=== PATIENT | male | born 1965 | race Caucasian/White ===

== ENCOUNTER 2022-10-20 20:46 | Inpatient (IN) | payer OTHER ==
[2022-10-20 21:21] VITALS: BMI 34.7
[2022-10-20] MEDS ORDERED: BISMUTH SUBSALICYLATE 524 MG/30 ML PO PRN (22:03)
[2022-10-20] MEDS ORDERED: LOPERAMIDE HCL 2 MG CAPSULE PO PRN (22:03)
[2022-10-20] MEDS ORDERED: IBUPROFEN 600 MG TABLET (FP) PO PRN (22:03)
[2022-10-20] MEDS ORDERED: MAGNESIUM HYDROX 2400MG/30ML ORAL SUSPENSION 30 ML CUP PO PRN (22:03)
[2022-10-20] MEDS ORDERED: NALOXONE HCL (KLOXXADO) 8 MG SPRAY NS PRN (22:03)
[2022-10-20] MEDS ORDERED: IBUPROFEN 400 MG TABLET (FP) PO PRN (22:03)
[2022-10-20] MEDS ORDERED: ONDANSETRON *ODT* 4 MG TABLET SL PRN (22:03)
[2022-10-20] MEDS ORDERED: BENZOCAINE/MENTHOL (CHLORASEPTIC ) LOZENGE MM PRN (22:03)
[2022-10-20] MEDS ORDERED: DICYCLOMINE HCL 10 MG CAPSULE PO PRN (22:03)
[2022-10-20] MEDS ORDERED: MAG HYDROX/AL HYDROX/SIMETH 30 ML UNIT-DOSE CUP PO PRN (22:03)
[2022-10-20] MEDS ORDERED: NICOTINE 10 MG CARTRIDGE (INHALER) IH PRN (22:03)
[2022-10-20] MEDS ORDERED: POLYETHYLENE GLYCOL (HEALTHYLAX) 3350 17 GM PACKET PO PRN (22:03)
[2022-10-20] MEDS ORDERED: METHOCARBAMOL 500 MG TABLET PO PRN (22:03)
[2022-10-20] MEDS ORDERED: ACETAMINOPHEN 325 MG TABLET (FP) PO PRN ×2 (22:03)
[2022-10-20] MEDS ORDERED: hydrOXYzine PAMOATE 25 MG CAPSULE (FP) PO ONE (23:55)
[2022-10-21] MEDS ORDERED: chlordiazePOXIDE HCL 25 MG CAPSULE PO PRN (10:26)
[2022-10-21] MEDS: PRENATAL VITAMINS W/ FOLIC ACID TABLET (FP) PO SCH (10:38)
[2022-10-21] MEDS: LOSARTAN POTASSIUM 50 MG TABLET PO SCH (10:41)
[2022-10-21] MEDS: ALBUTEROL SO4 HFA INHALER IH PRN (10:41)
[2022-10-21] MEDS: NICOTINE 14 MG/24 HOURS TOPICAL PATCH TD SCH (10:41)
[2022-10-21] MEDS: chlordiazePOXIDE HCL 25 MG CAPSULE PO SCH ×3 (11:19→22:26)
[2022-10-21 12:50] LABS: HEMATOCRIT 41.9 % (35.4-49); HEMOGLOBIN 13.7 GM/dL (11.7-16.9); MCH 28.4 pg (25.7-33.7); MCHC 32.8 g/dl (32.0-35.9); MEAN CELL VOLUME 86.5 fl (80-96); MEAN PLT VOLUME 7.7 fl (7.5-11.1); PLATELET COUNT 307 10^3/uL (134-434); RBC 4.85 M/mm3 (4.00-5.60); RDW 13.6 % (11.9-15.9); WHITE BLOOD COUNT 7.1 K/mm3 (4.0-10.0)
[2022-10-21 13:27] LABS: CALCIUM 8.7 mg/dL (8.5-10.1)
[2022-10-21 13:28] LABS: ALBUMIN 3.3 g/dl (3.4-5.0)
[2022-10-21 13:31] LABS: CREATININE 0.9 mg/dL (0.55-1.3)
[2022-10-21 13:32] LABS: BILIRUBIN,TOTAL 0.4 mg/dL (0.2-1)
[2022-10-21 13:33] LABS: TOT PROT 6.6 g/dl (6.4-8.2)
[2022-10-21] MEDS: MELATONIN 5 MG TABLETS PO SCH (22:26)
[2022-10-21] MEDS: traZODone HCL 50 MG TABLET (FP) PO SCH (22:26)
[2022-10-21] MEDS: MONTELUKAST NA 10 MG TABLET PO SCH (22:26)
[2022-10-21] MEDS: THIAMINE HCL 100 MG TABLET (FP) PO SCH (22:26)
[2022-10-22] MEDS: chlordiazePOXIDE HCL 25 MG CAPSULE PO SCH ×4 (05:52→22:12)
[2022-10-22] MEDS: PRENATAL VITAMINS W/ FOLIC ACID TABLET (FP) PO SCH (10:29)
[2022-10-22] MEDS: LOSARTAN POTASSIUM 50 MG TABLET PO SCH (10:30)
[2022-10-22] MEDS: ESCITALOPRAM OXALATE 20 MG TABLET PO SCH (10:30)
[2022-10-22] MEDS: NICOTINE 14 MG/24 HOURS TOPICAL PATCH TD SCH (10:30)
[2022-10-22] MEDS: THIAMINE HCL 100 MG TABLET (FP) PO SCH (22:11)
[2022-10-22] MEDS: traZODone HCL 50 MG TABLET (FP) PO SCH (22:11)
[2022-10-22] MEDS: MONTELUKAST NA 10 MG TABLET PO SCH (22:11)
[2022-10-22] MEDS: MELATONIN 5 MG TABLETS PO SCH (22:11)
[2022-10-23] MEDS: chlordiazePOXIDE HCL 25 MG CAPSULE PO SCH ×4 (06:05→22:19)
[2022-10-23] MEDS: PRENATAL VITAMINS W/ FOLIC ACID TABLET (FP) PO SCH (10:31)
[2022-10-23] MEDS: ESCITALOPRAM OXALATE 20 MG TABLET PO SCH (10:32)
[2022-10-23] MEDS: LOSARTAN POTASSIUM 50 MG TABLET PO SCH (10:32)
[2022-10-23] MEDS: NICOTINE 14 MG/24 HOURS TOPICAL PATCH TD SCH (10:36)
[2022-10-23] MEDS ORDERED: LOSARTAN POTASSIUM 50 MG TABLET PO SCH (11:45)
[2022-10-23] MEDS: MELATONIN 5 MG TABLETS PO SCH (22:19)
[2022-10-23] MEDS: ATORVASTATIN CA 10 MG TABLET (FP) PO SCH (22:19)
[2022-10-23] MEDS: traZODone HCL 50 MG TABLET (FP) PO SCH (22:19)
[2022-10-23] MEDS: MONTELUKAST NA 10 MG TABLET PO SCH (22:19)
[2022-10-23] MEDS: THIAMINE HCL 100 MG TABLET (FP) PO SCH (22:19)
[2022-10-24] MEDS ORDERED: chlordiazePOXIDE HCL 10 MG CAPSULE PO PRN
[2022-10-24] MEDS: chlordiazePOXIDE HCL 10 MG CAPSULE PO SCH ×4 (05:39→22:30)
[2022-10-24] MEDS: PRENATAL VITAMINS W/ FOLIC ACID TABLET (FP) PO SCH (10:26)
[2022-10-24] MEDS: LOSARTAN POTASSIUM 50 MG TABLET PO SCH (10:26)
[2022-10-24] MEDS: ESCITALOPRAM OXALATE 20 MG TABLET PO SCH (10:26)
[2022-10-24] MEDS: NICOTINE 14 MG/24 HOURS TOPICAL PATCH TD SCH (10:30)
[2022-10-24] MEDS: traZODone HCL 50 MG TABLET (FP) PO SCH (22:29)
[2022-10-24] MEDS: MELATONIN 5 MG TABLETS PO SCH (22:29)
[2022-10-24] MEDS: THIAMINE HCL 100 MG TABLET (FP) PO SCH (22:30)
[2022-10-24] MEDS: MONTELUKAST NA 10 MG TABLET PO SCH (22:30)
[2022-10-24] MEDS: ATORVASTATIN CA 10 MG TABLET (FP) PO SCH (22:30)
[2022-10-25] MEDS: chlordiazePOXIDE HCL 10 MG CAPSULE PO SCH ×2 (05:15→17:51)
[2022-10-25] MEDS: ESCITALOPRAM OXALATE 20 MG TABLET PO SCH (10:55)
[2022-10-25] MEDS: NICOTINE 14 MG/24 HOURS TOPICAL PATCH TD SCH (10:55)
[2022-10-25] MEDS: PRENATAL VITAMINS W/ FOLIC ACID TABLET (FP) PO SCH (10:55)
[2022-10-25] MEDS: LOSARTAN POTASSIUM 50 MG TABLET PO SCH (10:55)
[2022-10-25] MEDS: MELATONIN 5 MG TABLETS PO SCH (22:30)
[2022-10-25] MEDS: ATORVASTATIN CA 10 MG TABLET (FP) PO SCH (22:31)
[2022-10-25] MEDS: THIAMINE HCL 100 MG TABLET (FP) PO SCH (22:31)
[2022-10-25] MEDS: MONTELUKAST NA 10 MG TABLET PO SCH (22:32)
[2022-10-25] MEDS: traZODone HCL 50 MG TABLET (FP) PO SCH (22:32)
[2022-10-26] MEDS ORDERED: chlordiazePOXIDE HCL 10 MG CAPSULE PO ONE (05:00)
[2022-10-26] MEDS: LOSARTAN POTASSIUM 50 MG TABLET PO SCH (10:09)
[2022-10-26] MEDS: PRENATAL VITAMINS W/ FOLIC ACID TABLET (FP) PO SCH (10:09)
[2022-10-26] MEDS: ESCITALOPRAM OXALATE 20 MG TABLET PO SCH (10:09)
[2022-10-26] MEDS: NICOTINE 14 MG/24 HOURS TOPICAL PATCH TD SCH (10:10)
[2022-10-26] MEDS: ALBUTEROL SO4 HFA INHALER IH PRN (10:11)
[2022-10-26 10:46] VITALS: BP 112/72; PULSE 86; RESP 16; TEMP 97.7
== END 2022-10-26 12:33 | disposition other institution (70) | DRG 775 ==
LOC: YASAS 20:46 → Y3N 23:07 → UNDOADMIN 23:07 → Y3N 10-21 00:09
PROVIDERS: ADMIT Allergy & Immunology; ATTEND Surgery
PROC: HZ2ZZZZ Detoxification Services for Substance Abuse Treatment (ICD-10-PCS; principal; 2022-10-20)
DX: F10.230 Alcohol dependence with withdrawal, uncomplicated (principal); F17.210 Nicotine dependence, cigarettes, uncomplicated; F41.9 Anxiety disorder, unspecified; G47.00 Insomnia, unspecified; E78.5 Hyperlipidemia, unspecified; I10 Essential (primary) hypertension; J45.909 Unspecified asthma, uncomplicated; E66.9 Obesity, unspecified; Z68.34 Body mass index [BMI] 34.0-34.9, adult
CPT/HCPCS: 36415; 80053; 85027; 86780; 87811; 93005; 93010; C9803-CS; U0003; U0005

== ENCOUNTER 2024-06-13 14:50 | Inpatient (IN) | payer OTHER ==
[2024-06-13 15:35] VITALS: BMI 36.0
[2024-06-13] MEDS ORDERED: chlordiazePOXIDE HCL 25 MG CAPSULE PO PRN (18:21)
[2024-06-13] MEDS ORDERED: chlordiazePOXIDE HCL 25 MG CAPSULE PO ONE (18:21)
[2024-06-13] MEDS ORDERED: ACETAMINOPHEN 325 MG TABLET (FP) PO PRN (18:22)
[2024-06-13] MEDS ORDERED: IBUPROFEN 600 MG TABLET (FP) PO PRN (18:22)
[2024-06-13] MEDS ORDERED: POLYETHYLENE GLYCOL (HEALTHYLAX) 3350 17 GM PACKET PO PRN (18:22)
[2024-06-13] MEDS ORDERED: BISMUTH SUBSALICYLATE 524 MG/30 ML PO PRN (18:22)
[2024-06-13] MEDS ORDERED: IBUPROFEN 400 MG TABLET (FP) PO PRN (18:22)
[2024-06-13] MEDS ORDERED: guaiFENesin 600 MG TABLET.ER (FP) PO PRN (18:22)
[2024-06-13] MEDS ORDERED: BENZOCAINE/MENTHOL (CHLORASEPTIC ) LOZENGE MM PRN (18:22)
[2024-06-13] MEDS ORDERED: MAG HYDROX/AL HYDROX/SIMETH 30 ML UNIT-DOSE CUP PO PRN (18:22)
[2024-06-13] MEDS ORDERED: DICYCLOMINE HCL 10 MG CAPSULE PO PRN (18:22)
[2024-06-13] MEDS ORDERED: MAGNESIUM HYDROX 2400MG/30ML ORAL SUSPENSION 30 ML CUP PO PRN (18:22)
[2024-06-13] MEDS ORDERED: NICOTINE POLACRILEX 2 MG GUM BUC PRN (18:22)
[2024-06-13] MEDS ORDERED: BENZONATATE 200 MG CAPSULE PO PRN (18:22)
[2024-06-13] MEDS ORDERED: NICOTINE POLACRILEX 2 MG LOZENGE BC PRN (18:22)
[2024-06-13] MEDS ORDERED: METOPROLOL TARTRATE 25 MG TABLET (FP) PO ONE (18:23)
[2024-06-13] MEDS ORDERED: ALBUTEROL SO4 HFA INHALER IH PRN (18:55)
[2024-06-13] MEDS: chlordiazePOXIDE HCL 25 MG CAPSULE PO ONE (19:47)
[2024-06-13] MEDS: METOPROLOL TARTRATE 25 MG TABLET (FP) PO ONE (19:51)
[2024-06-13] MEDS: MELATONIN 5 MG TABLETS PO SCH (22:32)
[2024-06-13] MEDS: ATORVASTATIN CA 10 MG TABLET (FP) PO SCH (22:32)
[2024-06-13] MEDS: MONTELUKAST NA 10 MG TABLET PO SCH (22:32)
[2024-06-13] MEDS: levETIRAcetam 500 MG TABLET (FP) PO SCH (22:32)
[2024-06-13] MEDS: THIAMINE 100 MG TABLET PO SCH (22:32)
[2024-06-13] MEDS: chlordiazePOXIDE HCL 25 MG CAPSULE PO SCH (22:33)
[2024-06-14] MEDS: PRENATAL VITAMINS W/ FOLIC ACID TABLET (FP) PO SCH (10:19)
[2024-06-14] MEDS: LOSARTAN POTASSIUM 50 MG TABLET PO SCH (10:21)
[2024-06-14] MEDS: LOPERAMIDE HCL 2 MG CAPSULE PO PRN (10:23)
[2024-06-14] MEDS: NICOTINE 14 MG/24 HOURS TOPICAL PATCH TD SCH (10:53)
[2024-06-14] MEDS: VENLAFAXINE HCL 150 MG E.R. CAPSULE PO SCH (11:50)
[2024-06-14 15:12] LABS: POTASSIUM 5.1 mmol/L (3.5-5.1)
[2024-06-14 15:13] LABS: HEMATOCRIT 44.9 % (35.4-49); HEMOGLOBIN 15.6 GM/dL (11.7-16.9); MCHC 34.7 g/dl (32.0-35.9); MEAN CELL VOLUME 86.5 fl (80-96); MEAN PLT VOLUME 7.8 fl (7.5-11.1); PLATELET COUNT 298 10^3/uL (134-434); RDW 13.9 % (11.9-15.9); WHITE BLOOD COUNT 8.6 K/mm3 (4.0-10.0)
[2024-06-14 15:26] LABS: ALBUMIN 3.8 g/dl (3.4-5.0)
[2024-06-14 15:27] LABS: CALCIUM 9.4 mg/dL (8.5-10.1)
[2024-06-14 15:28] LABS: CREATININE 0.8 mg/dL (0.55-1.3)
[2024-06-14 15:29] LABS: BILIRUBIN,TOTAL 1.2 mg/dL (0.2-1); TOT PROT 7.2 g/dl (6.4-8.2)
[2024-06-14] MEDS: ONDANSETRON *ODT* 4 MG TABLET SL PRN (16:41)
[2024-06-14] MEDS: traZODone HCL 100 MG TABLET (FP) PO SCH (22:45)
[2024-06-15] MEDS: chlordiazePOXIDE HCL 25 MG CAPSULE PO SCH (05:56)
[2024-06-15] MEDS: NICOTINE 21 MG/24 HOURS TOPICAL PATCH TD SCH (10:11)
[2024-06-16] MEDS ORDERED: chlordiazePOXIDE HCL 10 MG CAPSULE PO PRN
[2024-06-16] MEDS: chlordiazePOXIDE HCL 10 MG CAPSULE PO SCH (05:55)
[2024-06-17] MEDS: chlordiazePOXIDE HCL 10 MG CAPSULE PO SCH (05:47)
[2024-06-17] MEDS: METHOCARBAMOL 500 MG TABLET PO PRN (22:28)
[2024-06-18] MEDS: chlordiazePOXIDE HCL 10 MG CAPSULE PO ONE (05:45)
[2024-06-19 14:02] VITALS: BP 104/64; PULSE 88; RESP 16; TEMP 96.9
== END 2024-06-19 13:54 | disposition home or self-care (01) | DRG 775 ==
LOC: YASAS 14:50 → Y6N 18:31
PROVIDERS: ADMIT Allergy & Immunology; ATTEND Family Medicine Addiction Medicine
PROC: HZ2ZZZZ Detoxification Services for Substance Abuse Treatment (ICD-10-PCS; principal; 2024-06-13)
DX: F10.230 Alcohol dependence with withdrawal, uncomplicated (principal); F17.210 Nicotine dependence, cigarettes, uncomplicated; F10.280 Alcohol dependence with alcohol-induced anxiety disorder; F10.24 Alcohol dependence with alcohol-induced mood disorder; F32.9 Major depressive disorder, single episode, unspecified; E78.5 Hyperlipidemia, unspecified; G47.00 Insomnia, unspecified; I10 Essential (primary) hypertension; J45.909 Unspecified asthma, uncomplicated; Z59.02 Unsheltered homelessness
CPT/HCPCS: 36415; 80053; 80305; 85027; 86780; 87811; 93005; 93010; Q0162